=== PATIENT | female | born 1960 | race Two or more races ===

== ENCOUNTER 2016-04-02 17:36 | Emergency (ER) | payer SELFPAY ==
[~2016-04-02] VITALS: Ht 162.6 cm; Wt 83.0 kg
[2016-04-02 17:52] VITALS: BP 123/82
== END 2016-04-02 22:32 | disposition left against medical advice (07) ==
LOC: ER 17:40
DX: R10.2 Pelvic and perineal pain (principal); R30.9 Painful micturition, unspecified; Z53.21 Procedure and treatment not carried out due to patient leaving prior to being seen by health care provider

== ENCOUNTER 2016-10-01 18:14 | Emergency (ER) | payer OTHER ==
[~2016-10-01] VITALS: Ht 162.6 cm; Wt 83.5 kg
[2016-10-01 19:34] LABS: Basophils # (auto) 0 uL; Basophils % (auto) 0.5 % (0.0-2.0); CONDITION Y; Eosinophils # (auto) 0.2 uL; Eosinophils % (auto) 2.2 % (0.0-7.0); Hematocrit 42.8 % (36.0-46.0); Hemoglobin 14.5 g/dL (12.2-16.2); Lymphocytes # (auto) 4.2 uL; Lymphocytes % (auto) 45.4 % (10.0-50.0); Mean Corpuscular Hgb Conc. 33.9 g/dL (32.0-36.0); Mean Corpuscular Volume 91.3 fL (80.0-100.0); Mean Platelet Volume 8.4 fL (7.4-10.4); Monocytes # (auto) 0.7 uL; Monocytes % (auto) 7.3 % (0.0-12.0); Neutrophils # (auto) 4.2 uL; Neutrophils % (auto) 44.6 % (37.0-80.0); Platelet Count (auto) 291 10^3/uL (140-450); Red Cell Distribution Width 13.6 % (11.6-16.0); White Blood Cell 9.4 10^3/uL (4.4-10.8)
[2016-10-01 19:38] LABS: Urine Bilirubin Negative (Negative); Urine Blood Negative /uL (Negative); Urine Color Yellow (Yellow); Urine Glucose Normal (Normal); Urine Ketone Negative (Negative); Urine Mucus FEW (None Seen); Urine Nitrite Negative (Negative); Urine RBC 1 /hpf (0 - 4); Urine Squamous Epithelial Cell FEW /hpf (<5); Urine Urobilinogen Normal (Negative)
[2016-10-01 19:44] LABS: Albumin 3.7 g/dL (3.4-5.0); Amylase 68 U/L (25-115); Anion Gap 9 (5-15); Aspartate Aminotransferase 12 U/L (15-37); BUN/Creatinine Ratio 12.2; Blood Urea Nitrogen 11 mg/dL (7-18); Calcium 8.4 mg/dL (8.5-10.1); Carbon Dioxide 24 mmol/L (21-32); Chloride 111 mmol/L (98-107); GFR African American 84 mL/min; GFR Non-African American 69 mL/min; Glucose 92 mg/dL (74-106); Potassium 3.5 mmol/L (3.5-5.1); Sodium 144 mmol/L (136-145)
[2016-10-01 19:51] LABS: Alkaline Phosphatase 74 U/L (45-117); Bilirubin, Total 0.2 mg/dL (0.2-1.0); Total Protein 7.4 g/dL (6.4-8.2)
[2016-10-02] MEDS ORDERED: ONDANSETRON HCL 4 MG/2 ML VIAL IV ONE (03:30)
[2016-10-02] MEDS ORDERED: SODIUM CHLORIDE 0.9% 1,000 ML IV ONE (03:30)
[2016-10-02] MEDS ORDERED: MORPHINE SULFATE 4 MG/ML SYRG IV ONE (03:30)
[2016-10-02 06:41] VITALS: BP 132/78
== END 2016-10-02 07:16 | disposition home or self-care (01) ==
LOC: ER 18:22
DX: K52.9 Noninfective gastroenteritis and colitis, unspecified (principal); B19.20 Unspecified viral hepatitis C without hepatic coma
CPT/HCPCS: 36415; 74176; 80053; 81001; 82150; 83690; 84484; 85025; 93005; 94761; 96361; 96374; 96375; 99285; J2270; J2405; J7030